=== PATIENT | female | born 1975 | race Two or more races ===

== ENCOUNTER 2021-07-06 18:42 | Emergency (ER) | payer SELFPAY ==
[~2021-07-06] VITALS: Ht 162.6 cm; Wt 65.8 kg
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
[2021-07-06] MEDS ORDERED: KETOROLAC TROMETHAMINE INJ 30 MG/ML VIAL ONE (19:19)
[2021-07-06] MEDS ORDERED: LORAZEPAM 0.5 MG TABLET ONE (19:19)
[2021-07-06] MEDS ORDERED: LORAZEPAM 1 MG TABLET PO ONE (19:30)
[2021-07-06] MEDS ORDERED: KETOROLAC TROMETHAMINE INJ 30 MG/ML VIAL IM ONE (19:30)
--- NOTE | 2021-07-06 19:43 | NUR ---
URINE COLLECTED AND SENT TO LAB.
[2021-07-06] MEDS ORDERED: CYCL5TAB PO (20:55)
[2021-07-06] MEDS ORDERED: IBUP-1957 PO (20:55)
--- NOTE | 2021-07-06 21:08 | NUR ---
Patient discharged to home in stable condition. Rx and Written and verbal after care instructions given. Patient verbalizes understanding of instruction.
[2021-07-06 21:09] VITALS: BP 138/88
== END 2021-07-06 21:09 | disposition home or self-care (01) ==
LOC: ER 19:43
DX: R07.89 Other chest pain (principal); Z79.899 Other long term (current) drug therapy
CPT/HCPCS: 71045; 84703; 93005; 96372; 99285; J1885